=== PATIENT | male | born 1960 | race Caucasian/White ===

== ENCOUNTER 2022-04-06 20:52 | Inpatient (IN) ==
[2022-04-06] MEDS ORDERED: Lactated Ringers 1000 ml BAG 1,000 ML IV ONE (21:01)
[2022-04-06 21:19] LABS: Hematocrit 46 % (42-52); Hemoglobin 16.1 g/dL (14.0-18.0); Mean Corpuscular HGB Conc 35 g/dL (31-36); Mean Corpuscular Hemoglobin 33 pg (27-31); Mean Corpuscular Volume 95 fL (80-94); Mean Platelet Volume 8.4 fL (7.4-10.4); Platelet Count 202 10^3/uL (150-450); Red Blood Count 4.86 10^6 /uL (4.18-5.48); Red Cell Distribution Width 13 % (10-15); Venous Bicarbonate HCO3 26.1 mmol/L (24-28); White Blood Count 17.4 10^3/uL (3.5-10.8)
[2022-04-06 21:29] LABS: INR 1.37 (0.88-1.18)
[2022-04-06 21:39] LABS: High Sens Troponin Baseline 14 pg/mL (<20)
[2022-04-06 22:00] LABS: ALT 16 U/L (7-52); Albumin 3.8 g/dL (3.2-5.2); Albumin/Globulin Ratio 1.8 (1-3); Alcohol, S < 13 mg/dL (<13); Alkaline Phosphatase 42 U/L (35-149); Blood Urea Nitrogen 13 mg/dL (6-24); CO2 Carbon Dioxide 20 mmol/L (22-32); Calcium 7.4 mg/dL (8.6-10.3); Chloride 85 mmol/L (101-111); Creatinine, Serum 0.88 mg/dL (0.67-1.17); Globulin 2.1 g/dL (2-4); Glucose 101 mg/dL (70-100); Total Protein 5.9 g/dL (6.4-8.9)
[2022-04-06 22:12] LABS: ABS Basophils 0.1 10^3/ul (0-0.2); ABS Lymphocytes 1.8 10^3/ul (1.0-4.8); ABS Monocytes 2.2 10^3/ul (0-0.8); ABS Neutrophils 13.2 10^3/ul (1.5-7.7); Lymphocyte % 10.6 %
[2022-04-06 22:17] LABS: Anion Gap 10 mmol/L (2-11); Sodium 115 mmol/L (135-145)
[2022-04-06 22:31] LABS: Urine Appearance Clear; Urine Bilirubin Negative (Negative); Urine Blood 1+ (Negative); Urine Color Straw; Urine Glucose Negative (Negative); Urine Ketones 1+ (Negative); Urine Nitrite Negative (Negative); Urine Protein Negative (Negative); Urine Specific Gravity 1.003 (1.002-1.030); Urine Urobilinogen Negative (Negative)
[2022-04-06 22:35] LABS: Urine Bacteria 1+ (Absent); Urine Red Blood Cell Trace(0-2/hpf) (Absent); Urine White Blood Cell Trace(0-5/hpf) (Absent)
[2022-04-06 22:41] LABS: Urine Benzodiazepine Screen None Detected (None Detect); Urine Cannabinoids Screen None Detected (None Detect); Urine Opiates Screen None Detected (None Detect)
[2022-04-06 22:42] LABS: Osmolality Serum 243 mOsm/kg (275-295)
[2022-04-06 23:46] LABS: High Sensitivity Troponin 1 Hr 11 pg/mL (<20)
[2022-04-07 00:34] LABS: T4, Total 8.33 mcg/dL (6.09-12.23)
[2022-04-07 00:37] LABS: TSH Ultra Thyroid Stim Horm 0.32 mcIU/mL (0.34-5.60)
[2022-04-07 00:42] LABS: Hematocrit 47 % (42-52); Hemoglobin 16.4 g/dL (14.0-18.0); Mean Corpuscular HGB Conc 35 g/dL (31-36); Mean Corpuscular Hemoglobin 33 pg (27-31); Mean Corpuscular Volume 95 fL (80-94); Mean Platelet Volume 8.3 fL (7.4-10.4); Platelet Count 192 10^3/uL (150-450); Red Blood Count 4.94 10^6 /uL (4.18-5.48); Red Cell Distribution Width 13 % (10-15); White Blood Count 13.3 10^3/uL (3.5-10.8)
[2022-04-07 00:51] LABS: Urine Chloride Concentration < 22 mmol/L; Urine Potassium Concentration < 3.0 mmol/L; Urine Sodium Concentration < 18 mmol/L
[2022-04-07 00:52] LABS: ABS Lymphocytes 1.7 10^3/ul (1.0-4.8); ABS Monocytes 1.6 10^3/ul (0-0.8); Lymphocyte % 12.4 %
[2022-04-07 00:55] LABS: Potassium Redraw 2.6 mmol/L (3.5-5.0)
[2022-04-07] MEDS ORDERED: Desmopressin Acetate 4 MCG/ML 1 ML SDV SUBCUT ONE ×2 (00:57→19:15)
[2022-04-07] MEDS ORDERED: Magnesium Sulf 4 GM/100 ML IV 4,000 MG/100 ML BAG IVPB ONE (00:57)
[2022-04-07 01:12] LABS: Urine Osmo < 100 mOsm/kg (150-1150)
[2022-04-07 01:13] LABS: Calcium 8.2 mg/dL (8.6-10.3); Creatinine, Serum 1.04 mg/dL (0.67-1.17); Magnesium 1.7 mg/dL (1.9-2.7); Phosphorus 3.6 mg/dL (2.5-5.0); Potassium 3.3 mmol/L (3.5-5.0); eGFR CKD-EPI 80.2 (>60)
[2022-04-07 01:18] LABS: HDL Cholesterol 20.3 mg/dL
[2022-04-07] MEDS: KCL 20 MEQ/100 ML IVPREMIX 20 MEQ/100 ML BAG IV SCH ×3 (01:25→04:28)
[2022-04-07 03:54] LABS: Creatinine, Serum 0.92 mg/dL (0.67-1.17); Phosphorus 3.4 mg/dL (2.5-5.0); Potassium 3.5 mmol/L (3.5-5.0); eGFR CKD-EPI 92.9 (>60)
[2022-04-07] MEDS ORDERED: D5W 500 ml BAG 500 ML IV SCH ×3 (04:00→23:45)
[2022-04-07] MEDS: Thiamine 100 MG/ML 2 ml VIAL 100 MG in NS 0.9% 50 ML 50 ML IV SCH (05:50)
[2022-04-07] MEDS ORDERED: Vancomycin 1,250 MG in NS 0.9% 250 ml 250 ML IVPB ONE (06:35)
[2022-04-07] MEDS ORDERED: Vancomycin per Pharmacy 1 EA NOTE FOLLOW UP PRN (06:45)
[2022-04-07 06:49] LABS: C Reactive Protein 4.71 mg/L (<8.01); Calcium 7.8 mg/dL (8.6-10.3); Creatinine, Serum 0.92 mg/dL (0.67-1.17); Magnesium 2.7 mg/dL (1.9-2.7); Phosphorus 2.6 mg/dL (2.5-5.0); Potassium 3.6 mmol/L (3.5-5.0); eGFR CKD-EPI 92.9 (>60)
[2022-04-07] MEDS ORDERED: ACYCLOVIR IVPB SCH (07:30)
[2022-04-07] MEDS ORDERED: cefTRIAXone 2 gm/50 mL D5W 2 GM/50 ML BAG IV SCH (07:30)
[2022-04-07] MEDS ORDERED: NS 0.9% IVPB SCH (07:30)
[2022-04-07] MEDS: Ampicillin ADVAN 2 GM in NS 0.9% 100 ml BAG 100 ML IVPB SCH ×2 (08:45→12:37)
[2022-04-07] MEDS ORDERED: Desmopressin Acetate 4 MCG/ML 1 ML SDV SUBCUT SCH (09:00)
[2022-04-07] MEDS ORDERED: Pantoprazole VIAL 40 MG VIAL IV SCH (09:00)
[2022-04-07] MEDS ORDERED: Gadoteridol (CONTRAST) 279.3 MG/ML 10 ML IV ONE (10:30)
[2022-04-07 11:57] LABS: Calcium 7.8 mg/dL (8.6-10.3); Creatinine, Serum 0.98 mg/dL (0.67-1.17); Magnesium 2.3 mg/dL (1.9-2.7); Phosphorus 2.9 mg/dL (2.5-5.0); Potassium 3.7 mmol/L (3.5-5.0); eGFR CKD-EPI 86.1 (>60)
[2022-04-07] MEDS ORDERED: KCL 20 MEQ/100 ML IVPREMIX 20 MEQ/100 ML BAG IV ONE (12:08)
[2022-04-07] MEDS ORDERED: levETIRAcetam IV 1,500 MG in NS 0.9% 100 ml BAG 100 ML IVPB ONE (12:30)
[2022-04-07] MEDS ORDERED: fentaNYL 100 mcg/2 ml 50 MCG/ML VIAL ONE (13:19)
[2022-04-07] MEDS ORDERED: Midazolam 2 mg/2 ml VIAL 1 mg/ml 2 ml VIAL (2 mg) ONE (13:19)
[2022-04-07] MEDS ORDERED: Midazolam 2 mg/2 ml VIAL 1 mg/ml 2 ml VIAL (2 mg) IV SLOW PU ONE (13:49)
[2022-04-07] MEDS ORDERED: fentaNYL 100 mcg/2 ml 50 MCG/ML VIAL IV SLOW PU ONE (13:50)
[2022-04-07 14:09] LABS: Body Fluid Source Cerebral Spinal
[2022-04-07 14:25] LABS: CSF Glucose 55 mg/dL (40-70)
[2022-04-07 14:38] LABS: Body Fluid Appearance Cloudy; Body Fluid Color Yellow; CSF Tube # 4
[2022-04-07 14:47] LABS: Body Fluid WBC 107 /mcL
[2022-04-07 14:50] LABS: Body Fluid Mono 38 %; Body Fluid Total Cells Counted 200
[2022-04-07] MEDS: Acyclovir IV 800 MG in NS 0.9% 250 ml 250 ML IVPB SCH ×2 (15:22→23:52)
[2022-04-07 18:38] LABS: Blood Urea Nitrogen 9 mg/dL (6-24); CO2 Carbon Dioxide 26 mmol/L (22-32); Calcium 7.6 mg/dL (8.6-10.3); Chloride 96 mmol/L (101-111); Creatinine, Serum 0.92 mg/dL (0.67-1.17); Glucose 90 mg/dL (70-100); Magnesium 2.1 mg/dL (1.9-2.7); Sodium 129 mmol/L (135-145); eGFR CKD-EPI 92.9 (>60)
[2022-04-07 18:48] LABS: Anion Gap 7 mmol/L (2-11)
[2022-04-07] MEDS: levETIRAcetam 500 MG IVPREMIX 500 MG/100 ML BAG IV SCH (20:18)
[2022-04-07 23:27] LABS: Calcium 7.4 mg/dL (8.6-10.3); Magnesium 2.1 mg/dL (1.9-2.7); Phosphorus 2.8 mg/dL (2.5-5.0); Potassium 3.5 mmol/L (3.5-5.0)
[2022-04-07] MEDS: Enoxaparin 40 MG/0.4 ML SYR SUBCUT SCH (23:53)
[2022-04-08 04:48] LABS: ABS Eosinophils 0.1 10^3/ul (0-0.6); ABS Lymphocytes 1.5 10^3/ul (1.0-4.8); ABS Monocytes 1.2 10^3/ul (0-0.8); ABS Neutrophils 4.7 10^3/ul (1.5-7.7); Eosinophil % 0.7 %; Hematocrit 43 % (42-52); Hemoglobin 14.9 g/dL (14.0-18.0); Lymphocyte % 19.4 %; Mean Corpuscular HGB Conc 35 g/dL (31-36); Mean Corpuscular Hemoglobin 33 pg (27-31); Mean Corpuscular Volume 95 fL (80-94); Mean Platelet Volume 8.3 fL (7.4-10.4); Platelet Count 161 10^3/uL (150-450); Red Blood Count 4.48 10^6 /uL (4.18-5.48); Red Cell Distribution Width 13 % (10-15); White Blood Count 7.5 10^3/uL (3.5-10.8)
[2022-04-08 05:30] LABS: Albumin 3.2 g/dL (3.2-5.2); Albumin/Globulin Ratio 1.7 (1-3); Calcium 7.4 mg/dL (8.6-10.3); Creatinine, Serum 0.98 mg/dL (0.67-1.17); Globulin 1.9 g/dL (2-4); Potassium 3.3 mmol/L (3.5-5.0); Total Bilirubin 1.4 mg/dL (0.2-1.0); Total Protein 5.1 g/dL (6.4-8.9); eGFR CKD-EPI 86.1 (>60)
[2022-04-08] MEDS ORDERED: Potassium Chlor 20 meq TAB.ER PO ONE (05:44)
[2022-04-08] MEDS: Thiamine 100 MG/ML 2 ml VIAL 100 MG in NS 0.9% 50 ML 50 ML IV SCH (06:29)
[2022-04-08] MEDS ORDERED: KCL 20 MEQ/100 ML IVPREMIX 20 MEQ/100 ML BAG IV ONE (07:14)
[2022-04-08] MEDS: Acyclovir IV 800 MG in NS 0.9% 250 ml 250 ML IVPB SCH ×3 (08:16→22:31)
[2022-04-08] MEDS: levETIRAcetam 500 MG IVPREMIX 500 MG/100 ML BAG IV SCH ×2 (09:55→22:06)
[2022-04-08 18:05] LABS: HSV 1 PCR, CSF Positive (Negative); HSV 2 PCR, CSF Negative (Negative)
[2022-04-08] MEDS ORDERED: Acetaminophen IV 1 GM/100ML 1,000 MG/100 ML BAG IV ONE (20:03)
[2022-04-08 21:03] LABS: Calcium 7.7 mg/dL (8.6-10.3); Creatinine, Serum 1.01 mg/dL (0.67-1.17); Potassium 3.8 mmol/L (3.5-5.0)
[2022-04-08] MEDS: Enoxaparin 40 MG/0.4 ML SYR SUBCUT SCH (21:51)
[2022-04-09] MEDS: Thiamine 100 MG/ML 2 ml VIAL 100 MG in NS 0.9% 50 ML 50 ML IV SCH (05:28)
[2022-04-09 07:23] LABS: ABS Eosinophils 0.3 10^3/ul (0-0.6); ABS Lymphocytes 1.1 10^3/ul (1.0-4.8); ABS Monocytes 0.8 10^3/ul (0-0.8); ABS Neutrophils 1.8 10^3/ul (1.5-7.7); Eosinophil % 6.6 %; Hematocrit 44 % (42-52); Hemoglobin 15.3 g/dL (14.0-18.0); Lymphocyte % 27.9 %; Mean Corpuscular HGB Conc 35 g/dL (31-36); Mean Corpuscular Hemoglobin 33 pg (27-31); Mean Corpuscular Volume 97 fL (80-94); Mean Platelet Volume 9.4 fL (7.4-10.4); Nucleated Red Blood Cells % 0.1; Platelet Count 149 10^3/uL (150-450); Red Blood Count 4.58 10^6 /uL (4.18-5.48); Red Cell Distribution Width 13 % (10-15)
[2022-04-09] MEDS: Acyclovir IV 800 MG in NS 0.9% 250 ml 250 ML IVPB SCH ×3 (07:30→22:04)
[2022-04-09 07:43] LABS: Albumin 3.3 g/dL (3.2-5.2); Albumin/Globulin Ratio 1.8 (1-3); Calcium 7.9 mg/dL (8.6-10.3); Creatinine, Serum 0.96 mg/dL (0.67-1.17); Globulin 1.8 g/dL (2-4); Magnesium 2.1 mg/dL (1.9-2.7); Potassium 3.9 mmol/L (3.5-5.0); Total Bilirubin 0.8 mg/dL (0.2-1.0); Total Protein 5.1 g/dL (6.4-8.9); eGFR CKD-EPI 88.3 (>60)
[2022-04-09] MEDS: levETIRAcetam 500 MG IVPREMIX 500 MG/100 ML BAG IV SCH (09:47)
[2022-04-09] MEDS: Enoxaparin 40 MG/0.4 ML SYR SUBCUT SCH (22:02)
[2022-04-10 07:27] LABS: ABS Eosinophils 0.4 10^3/ul (0-0.6); ABS Lymphocytes 1.2 10^3/ul (1.0-4.8); ABS Monocytes 0.6 10^3/ul (0-0.8); ABS Neutrophils 3.2 10^3/ul (1.5-7.7); Eosinophil % 7.1 %; Hematocrit 42 % (42-52); Hemoglobin 14.4 g/dL (14.0-18.0); Lymphocyte % 22.3 %; Mean Corpuscular HGB Conc 35 g/dL (31-36); Mean Corpuscular Hemoglobin 33 pg (27-31); Mean Corpuscular Volume 96 fL (80-94); Mean Platelet Volume 9.1 fL (7.4-10.4); Platelet Count 166 10^3/uL (150-450); Red Blood Count 4.34 10^6 /uL (4.18-5.48); Red Cell Distribution Width 13 % (10-15); White Blood Count 5.5 10^3/uL (3.5-10.8)
[2022-04-10] MEDS: Acyclovir IV 800 MG in NS 0.9% 250 ml 250 ML IVPB SCH ×3 (07:46→23:34)
[2022-04-10 07:56] LABS: Albumin/Globulin Ratio 1.4 (1-3); Calcium 7.9 mg/dL (8.6-10.3); Creatinine, Serum 0.84 mg/dL (0.67-1.17); Globulin 2.1 g/dL (2-4); Magnesium 1.8 mg/dL (1.9-2.7); Potassium 4.1 mmol/L (3.5-5.0); Total Bilirubin 0.6 mg/dL (0.2-1.0); Total Protein 5.1 g/dL (6.4-8.9); eGFR CKD-EPI 97.4 (>60)
[2022-04-10] MEDS ORDERED: Magnesium Sulfate 2 gm BAG 2 GM/50 ML BAG IVPB ONE (08:06)
[2022-04-10 12:43] LABS: Varicella Zoster Source CSF; Varicella Zoster Virus PCR Negative (Negative)
[2022-04-10] MEDS: Enoxaparin 40 MG/0.4 ML SYR SUBCUT SCH (20:14)
[2022-04-11] MEDS: Acyclovir IV 800 MG in NS 0.9% 250 ml 250 ML IVPB SCH ×3 (07:19→23:35)
[2022-04-11 08:13] LABS: Calcium 7.8 mg/dL (8.6-10.3); Creatinine, Serum 0.79 mg/dL (0.67-1.17); Magnesium 2.1 mg/dL (1.9-2.7); Potassium 4.2 mmol/L (3.5-5.0); eGFR CKD-EPI 99.2 (>60)
[2022-04-11 08:18] LABS: Hematocrit 42 % (42-52); Mean Corpuscular HGB Conc 35 g/dL (31-36); Mean Corpuscular Hemoglobin 34 pg (27-31); Mean Corpuscular Volume 97 fL (80-94); Mean Platelet Volume 9.6 fL (7.4-10.4); Platelet Count 181 10^3/uL (150-450); Red Blood Count 4.38 10^6 /uL (4.18-5.48); Red Cell Distribution Width 13 % (10-15); White Blood Count 5.6 10^3/uL (3.5-10.8)
[2022-04-11] MEDS: Enoxaparin 40 MG/0.4 ML SYR SUBCUT SCH (21:28)
[2022-04-12] MEDS: Acyclovir IV 800 MG in NS 0.9% 250 ml 250 ML IVPB SCH ×3 (07:50→23:52)
[2022-04-12] MEDS ORDERED: Lidocaine 1% MPF 5 ML VIAL INJ ONE (09:00)
[2022-04-12] MEDS: Enoxaparin 40 MG/0.4 ML SYR SUBCUT SCH (21:46)
[2022-04-13 06:53] LABS: Creatinine, Serum 0.86 mg/dL (0.67-1.17); Potassium 4.6 mmol/L (3.5-5.0); eGFR CKD-EPI 96.7 (>60)
[2022-04-13] MEDS: Acyclovir IV 800 MG in NS 0.9% 250 ml 250 ML IVPB SCH (07:58)
[2022-04-13 10:29] VITALS: BP 112/73
== END 2022-04-13 12:45 | disposition home or self-care (01) | DRG 50 ==
LOC: ED 20:52 → EDHOLD 22:48 → SUATTDRO 22:48 → ICU 23:45 → MED 04-08 21:35
PROVIDERS: ADMIT Internal Medicine Critical Care Medicine; ATTEND Internal Medicine